=== PATIENT | male | born 1930 | race Caucasian/White ===

== ENCOUNTER 2016-05-21 14:42 | Inpatient (IN) | payer MEDICARE, BC ==
[~2016-05-21] VITALS: Ht 27.9 cm; Wt 58.3 kg
--- NOTE | ~2016-05-21 | DS ---
PATIENT'S NAME: SANTOS HURD [facility] AGE: 86 Y [address] ROOM: [facility] [place] [address] LOCATION: GPCU ADMIT DATE: 05/21/2016 Discharge Summary DISCHARGE DATE: FAMILY PHYSICIAN: Sage Long MD ATTENDING PHYSICIAN: Mariza Sanders PRINCIPAL DIAGNOSES: 1. Trauma leading to multiple rib fractures, status post hemothorax, status post chest tube and removal. 2. Severe aortic stenosis with a valve area of 0.52 on the latest echo. 3. Insulin-dependant diabetes with multiple complications. 4. Severe gastroparesis. 5. Aspiration pneumonia. 6. High aspiration on all consistencies of food. 7. Advanced dementia. 8. Coronary artery disease, status post drug-eluting stent in 2016. 9. Peripheral vascular disease. The patient with the above-mentioned multiple advanced comorbid conditions, experienced a fall at home and presented to [facility] with a left-sided chest pain. X-ray showed multiple rib fractures as well as hemo as well as pneumothorax. General Surgery was consulted and a left-sided chest tube was placed. Other skeletal survey was also done with the CAT scan on admission to the hospital not revealing any significant fracture or abnormality. The patient had a long protracted hospital course experiencing multiple complications. He developed aspiration pneumonia in this hospitalization and he was treated for that with the Zosyn. Speech therapy as well as modified barium swallow was done to evaluate the patient's aspiration, and he continued to aspirate on multiple consistencies of food. confirmed that he had signs and symptoms of the aspiration from home as well. He received nasogastric tube feeds for over a week. The idea of gastrostomy tube was brought in, but declined to pursue this at this point. He also had severe aortic stenosis with the last valve area known as 0.52, which was diagnosed in February of 2016. does not want to pursue any invasive procedure including valvuloplasty or valve replacement or transaortic valve replacement at this point. The patient's blood glucose level had been uncontrolled in the hospital. We tried to adjust the medications. Given his other multiple comorbidities including severe protein-calorie malnutrition, high risk of aspiration, and severe gastroparesis, decided to adopt comfort / hospice measures at this time and he was discharged to a SNF. PATIENT'S NAME: SANTOS HURD [facility] AGE: 86 Y [address] ROOM: G68 [place] [address] LOCATION: GPCU ADMIT DATE: 05/21/2016 Discharge Summary DISCHARGE DATE: FAMILY PHYSICIAN: Sage Long MD ATTENDING PHYSICIAN: Mariza Sanders Of note, the patient also has severe peripheral vascular disease as well as coronary artery disease, status post fem-popliteal graft as well as drug-eluting stent which was done in 2015. Both his dual antiplatelets were held during the course of the hospitalization, but were restarted on discharge to the swing bed, [facility]. The patient will undergo occupational therapy as well as physical and speech therapy over there. DISCHARGE MEDICATIONS: Include, 1. Amitriptyline 75 mg p.o. every night at bedtime. 2. Amlodipine 5 mg p.o. every night at bedtime. 3. Aspirin 81 mg p.o. every day. 4. Plavix 75 mg p.o. every day. 5. Atorvastatin 40 mg p.o. every night at bedtime. 6. Fentanyl 75 mcg transdermally every 72 hours. 7. Insulin aspart subcu 4 times daily per sliding scale. 8. Insulin Lantus 15 to 20 units subcu every night at bedtime. 9. Reglan 5 mg p.o. t.i.d. 10. Mirtazapine 7.5 mg p.o. every night at bedtime. 11. Pantoprazole 40 mg p.o. daily. 12. MiraLAX 17 g p.o. twice daily p.r.n. 13. Sennosides 8.6 mg p.o. every day. 14. Prednisone 5 mg p.o. every day, stopped in this hospitalization. 15. DuoNeb 1 inhalation 4 times daily. 16. Melatonin 9 mg p.o. at bedtime as needed p.r.n. 17. Zofran 4 mg IV q.6 hours p.r.n. for nausea. 18. Hydrocortisone 4 drops otic 4 times daily. 19. Zolpidem 5 mg p.o. every night at bedtime. 20. Docusate 100 mg p.o. every morning. New medications include, 1. Symbicort 160/4.5 mcg b.i.d. inhalation. 2. Spiriva 18 mcg capsule inhalation once daily. FOLLOWUP: The patient would follow up with Dr. oLng in 1 week. The patient was hemodynamically stable at the discharge. Prognosis is guarded due to his multiple advanced comorbid conditions. I spent 40 minutes in discharge planning, care, and discussion with the family of this patient. PATIENT'S NAME: SANTOS HURD [facility] AGE: 86 Y [address] ROOM: [place] [address] [facility] ADMIT DATE: 05/21/2016 Discharge Summary DISCHARGE DATE: FAMILY PHYSICIAN: Sage Long MD ATTENDING PHYSICIAN: Mariza Sanders YANDEL HUBBARD MD TILA/modl /[id number] d: 06/05/16 0840 t: 06/08/16 1505, DISCHARGE SUMMARY
--- NOTE | ~2016-05-21 | ER ---
PATIENT'S NAME: SANTOS HURD [facility] AGE: 86 Y [address] ROOM: [place] [address] LOCATION: GPCU ADMIT DATE: 05/21/2016 ER/Outpatient Report DISCHARGE DATE: FAMILY PHYSICIAN: ORLANDO LONG MD ATTENDING PHYSICIAN: Marilyn MARIE TIME OF ARRIVAL: 1441 hours. TIME OF EVALUATION: 1442 hours. CHIEF COMPLAINT: Fall. HISTORY OF PRESENT ILLNESS: The patient is an 86-year-old male who presents to emergency department today with a chief complaint of fall. He reports it occurred at 9:30 this morning. He reports that he hit a chair on his left-side. He is having left-sided chest pain now. The pain is currently 10/10 in severity. He also has a back pain. He reports he has a chronic balance issues. He presented to Dr. Long clinic and was seen and evaluated underwent x-ray and was found to have rib fractures and pneumothorax and was sent over here for further evaluation. PAST MEDICAL HISTORY: Peripheral artery disease, ogs-dndhvkv-volvzgrcb diabetes, hypertension, aortic stenosis, BPH, falls, osteoporosis, and chronic back pain. PAST SURGICAL HISTORY: Lumbar spine. SOCIAL HISTORY: The patient denies any tobacco, alcohol, or illicit drug use. ALLERGIES: NO KNOWN DRUG ALLERGIES. MEDICATIONS: Please see list. REVIEW OF SYSTEMS: All systems are reviewed by myself are negative with the exception of those discussed in HPI and past medical history. PHYSICAL EXAMINATION: PATIENT'S NAME: SANTOS UHRD [facility] AGE: 86 Y [address] ROOM: [place] [address] LOCATION: GPCU ADMIT DATE: 05/21/2016 ER/Outpatient Report DISCHARGE DATE: FAMILY PHYSICIAN: ORLANDO LONG MD ATTENDING PHYSICIAN: Marilyn MARIE VITAL SIGNS: Weight 57.0 kg, blood pressure 163/77, pulse 78, respiratory rate 20, temperature 96.3, and oxygen saturation 95% on room air. GENERAL: The patient is an 86-year-old male who appears stated age in czzbyhfr-hp-yaypak acute discomfort, secondary to pain in his left chest. HEENT: Normocephalic, atraumatic. Pupils are equal, round, and reactive to light and accommodation. Extraocular motions are intact. Nares are patent bilaterally. TMs are clear. Oropharynx is clear. NECK: Supple. There is no nuchal rigidity. No midline tenderness to palpation. No step-offs or deformities. CARDIOVASCULAR: Regular rate and rhythm. LUNGS: Diminished on the left. ABDOMEN: Soft. There is left upper quadrant tenderness to palpation. There is no rebound, rigidity, or guarding. Positive bowel sounds. MUSCULOSKELETAL: The patient moves all 4 extremities. A 2/4 pulses of all 4 extremities. The patient does have crepitance noted to the left anterior chest wall and lateral chest wall. He has perfusion in all 4 extremities. LABS AND X-RAYS: Labs and x-rays are obtained. Previous x-rays are reviewed by myself. It does show evidence of a rib fracture of the left and the pneumothorax. CT scan is obtained. I have discussed results with the radiologist. It does show left hemithorax with rib fractures and pneumothorax, subcutaneous emphysema, and layering pleural fluid suspecting hemothorax in the left pleural space. There are emphysematous changes. There is constipation. CT scan of the lumbar spine shows no acute process. One-view chest x-ray post- chest tube resolution of the left pneumothorax. CT scan of the thoracic spine shows no acute fracture. CT scan of the cervical spine shows no acute fracture. CT scan the brain shows no acute process. Cardiac enzymes are unremarkable. CMP is unremarkable. LFTs are normal. CBC is remarkable for white blood cell count of 18.7 otherwise normal. IMPRESSION: 1. Acute left pneumothorax with hemothorax. 2. Multiple rib fractures 4 through 8. 3. Status post ground-level fall. 4. Chronic back pain. 5. Balance and instability. 6. Initial visit. EMERGENCY DEPARTMENT COURSE: The patient was brought back to the examination room. Seen and evaluated by myself. IV is established. Laboratory analysis and imaging are obtained as described above. Results of CT of the chest are obtained. I have discussed the case with Dr. Thomas with General Surgery and Trauma Surgery. Dr. Thomas has seen and evaluated the patient down here in the emergency PATIENT'S NAME: SANTOS HURD [facility] AGE: 86 Y [address] ROOM: [address] [address] [facility] AD[facility] DATE: 05/21/2016 ER/Outpatient Report DISCHARGE DATE: FAMILY PHYSICIAN: ORLANDO LONG MD ATTENDING PHYSICIAN: Marilyn MARIE department. He has placed a chest tube. Please see his dictation. I have discussed the case with Dr. Gabriel with the Family Practice resident at 1724 hours he will see and evaluate the patient and the staff with the Hospitalist Service. Please see his dictation as well. DISPOSITION: The patient is admitted under the care of the Hospitalist Service in conjunction with Dr. Gabriel resident for PA. DO CASS NEUMANN/modl /[id number] d: t: 05/22/16 0757, OUTPATIENT REPORT
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
--- NOTE | ~2016-05-21 | DS ---
PATIENT'S NAME: SANTOS HURD [facility] AGE: 86 Y [address] ROOM: [facility] [place] [address] LOCATION: GPCU ADMIT DATE: 05/21/2016 Discharge Summary DISCHARGE DATE: 06/07/2016 FAMILY PHYSICIAN: Sage Long MD ATTENDING PHYSICIAN: Mariza Sanders ADDENDUM: Further discussion with the family regarding the patient's prognosis and current condition, , Kaye, decided to make the patient comfortable and pursue comfort care measures rather than any treatment at this point. He will be discharged to [facility] today on comfort measures. DISCHARGE MEDICATIONS: Include: 1. Amitriptyline 75 mg p.o. every night at bedtime. 2. Amlodipine 5 mg p.o. every day. 3. Aspirin 81 mg p.o. every day. 4. Fentanyl 75 mg every 72 hours transdermal patch. 5. Insulin detemir 10 units subcu every night at bedtime. 6. Metoclopramide 5 mg p.o. t.i.d. 7. Mirtazapine 7.5 mg p.o. every night at bedtime. 8. Pantoprazole 40 mg p.o. daily. 9. MiraLAX 17 g p.o. twice daily p.r.n. 10. Senokot 8.6 mg p.o. p.r.n. 11. Tylenol 1000 mg every 8 hours p.r.n. 12. Atropine 1% ophthalmic drops 1-2 drops every 4 hours p.r.n. 13. Bisacodyl 10 mg rectal suppository p.r.n. 14. Docusate 100 mg p.o. b.i.d. 15. Haloperidol 1 mg every 1 hour as needed. 16. Hyoscyamine 125 mcg SL every 4 hours as needed. 17. Lorazepam 0.5 mg p.o. sublingual every 2 hours as needed. 18. Morphine sulfate 1-2 mg IV as needed p.r.n. 19. sublingual every hour p.r.n. 20. Prochlorperazine 25 mg rectal suppository every 12 hours as needed for pain. 21. Zolpidem 5 mg p.o. every night at bedtime for insomnia. CONDITION ON DISCHARGE: Guarded. PROGNOSIS: Poor. I spent 35 minutes in discharge planning, coordination, and discussion with the family. PATIENT'S NAME: SANTOS HURD [facility] AGE: 86 Y [address] ROOM: [id number] [place] [address] LOCATION: [facility] ADMIT DATE: 05/21/2016 Discharge Summary DISCHARGE DATE: 06/07/2016 FAMILY PHYSICIAN: Sage Long MD ATTENDING PHYSICIAN: Mariza Sanders MD TILA MONREAL/rui /[id number] d: 06/08/16 0247 t: 06/08/16 1508, DISCHARGE SUMMARY
--- NOTE | ~2016-05-21 | OR ---
PATIENT'S NAME: SANTOS HURD [facility] AGE: 86 Y [address] ROOM: [place] [address] LOCATION: GPCU ADMIT DATE: 05/21/2016 OR/Procedure Report DISCHARGE DATE: FAMILY PHYSICIAN: ORLANDO LONG MD ATTENDING PHYSICIAN: Marilyn MARIE SURGEON: Rishi Thomas MD FLAGSETTER: DATE OF PROCEDURE: 05/21/2016 REFERRING PHYSICIAN: Orlando Sánchez DO. PREOPERATIVE DIAGNOSES: 1. Fall. 2. Left rib fractures, number 4 through 8. 3. Large left pneumothorax. 4. History of Plavix utilization. POSTOPERATIVE DIAGNOSES: 1. Fall. 2. Left rib fractures, number 4 through 8. 3. Large left pneumothorax. 4. History of Plavix utilization. PROCEDURE: Insertion of a left 32-Belizean thoracostomy tube. ANESTHESIA: 30 mL of 1% Xylocaine. SPECIMEN: None. INDICATION: The patient is an 86-year-old gentleman who fell at home and a history of "drop attacks." He went to Dr. Long' office because of increasing chest pain and shortness of breath. A chest x-ray showed a large pneumothorax, who was sent down to the emergency room where they did a partial trauma evaluation. The patient had a CT scan; other than the pneumothorax, it was unremarkable for any acute changes. I was consulted for management. DESCRIPTION OF PROCEDURE: After informed consent and explanation of the procedure and increased risk of bleeding due to Plavix utilization in the emergency room, the family and the patient agreed to left thoracostomy tube placement for decompression of the pneumothorax. PROCEDURE: After informed consent in the ER suite, his left lateral chest was prepped and draped into a sterile field. On the anterior axillary line, I injected local anesthetic, and over 5th intercostal space, I injected local anesthetic. Using a 10 blade to make 1-inch incision, split the intercostal PATIENT'S NAME: SANTOS HURD [facility] AGE: 86 Y [address] ROOM: [place] [address] LOCATION: GPCU ADMIT DATE: 05/21/2016 OR/Procedure Report DISCHARGE DATE: FAMILY PHYSICIAN: ORLANDO LONG MD ATTENDING PHYSICIAN: Marilyn MARIE muscles and poked into the pleural cavity with release of a large amount of pneumothorax. We slid the 32-Belizean thoracostomy tube in to 10 cm. We secured it in place with 3-0 Prolene. Sterile dressing was applied. Followup chest x-ray showed good chest tube placement. A sliver of lateral peripheral pneumothorax remaining. No evidence of tension. MD GERARD KUMAR/modl /[id number] d: 05/21/16 2334 t: 06/04/16 0849, OPERATIVE SUMMARY
--- NOTE | ~2016-05-21 | HP ---
PATIENT'S NAME: SANTOS HURD [facility] AGE: 86 Y [address] ROOM: [id number] [place], [place] [address] LOCATION: GPCU ADMIT DATE: 05/21/2016 History & Physical DISCHARGE DATE: FAMILY PHYSICIAN: ORLANDO LONG MD ATTENDING PHYSICIAN: Marilyn MARIE DATE OF SERVICE: CHIEF COMPLAINT: Multiple rib fractures, left-sided pneumothorax. HISTORY OF PRESENT ILLNESS: This is a pleasant 86-year-old male who presented to the emergency department after an unwitnessed fall at home, that resulted in left sided pneumothorax. The patient states that he woke up this morning around 9 to 9:30 and was ambulating from his bedroom to his living room and once he got to his living room his feet felt "wobbly" and he fell to the ground. He states that he landed on his ribs on the left-side of his chest. He denies any head trauma or any loss of consciousness at all. He states then he was further evaluated by his primary care provider, Dr. Long, over at [facility]. At that time, a chest x-ray showed a left-sided pneumothorax. Dr. Long then sent him on over to [facility] Emergency Department for further evaluation. Once he got to the emergency department, a CT of his head, chest, and abdomen showed a left-sided pneumothorax as well as hemothorax and multiple rib fractures 4 through 8. General Surgery and Dr. Thomas was consulted. Dr. Thomas came in and placed the left-sided chest tube. Abdomen CT also showed constipation. See the CT scans for further reports. Dr. Thomas then did write for pain medications with morphine and to be admitted to the [facility]. Upon discussion further with the patient, the patient states that he does have a history of orthostatic hypotension. He states though that usually when he stands up, he will get little wobbly on his feet, and has to hold on to things before he starts walking; however, this event was different in the fact that he was ambulating through his living room when he felt weak and his legs give out. The patient is also a type 2 diabetic and is currently controlled on insulin. The patient does have a history of hypoglycemic episodes, but the patient states that his fasting glucose this morning was 98. The patient is unsure when his last hemoglobin A1c is. Again, the patient denies any loss of consciousness, the patient denies any tunnel vision or any blackout vision. During this event, the patient just states that his legs got weak. The patient denies tripping on anything. The patient currently lives with his here in [place], [place]. The patient denies any recent fevers, chills, or infections. The patient complains of severe left-sided chest pain, secondary to the fall/trauma and multiple rib fractures as well as a chest tube placement. The patient denies any recent infections or feeling fatigued at all. PATIENT'S NAME: SANTOS HURD [facility] AGE: 86 Y [address] ROOM: [facility] [place] [place], [place] [address] LOCATION: GPCU ADMIT DATE: 05/21/2016 History & Physical DISCHARGE DATE: FAMILY PHYSICIAN: ORLANDO LONG MD ATTENDING PHYSICIAN: Marilyn MARIE REVIEW OF SYSTEMS: An 11-point review of systems was negative other than what was noted up above in the HPI. PAST MEDICAL HISTORY: Type 2 diabetes, insulin-controlled, CAD, status post drug-eluting stent in July of 2015, peripheral vascular disease, orthostatic hypotension, hyperlipidemia, history of constipation, and diabetic neuropathy. MEDICATIONS: Home medications are as follows: 1. Aspirin 81 mg. 2. Amitriptyline 75 mg daily. 3. Fentanyl 75 mcg patch every 3rd day. 4. Clopidogrel 75 mg daily. 5. Atorvastatin 40 mg daily. 6. Amlodipine 5 mg daily. 7. Zolpidem 5 mg nightly. 8. Melatonin 3 mg nightly. 9. Docusate sodium 100 mg daily. 10. Sennosides 8.6 mg daily. 11. Insulin aspart with NovoLog sliding scale as needed with meal times. 12. Insulin glargine 15-20 units subcu nightly at bedtime. 13. Hydrocortisone polymyxin neomycin 10 mL optic drop. ALLERGIES: TEGRETOL. PHYSICAL EXAMINATION: VITAL SIGNS: Temp 97.7, respirations 18, pulse 78, blood pressure 199/85, and 99% on room air. GENERAL: He is alert and oriented x3, appears stated age. SKIN: Multiple areas of ecchymoses and bruising noted over his lower arms bilaterally. HEENT: Head: Normocephalic, atraumatic. Eyes: Extraocular movements intact. Pupils equal, round, and reactive to light and accommodation. No scleral icterus or conjunctival hemorrhage noted. Oral mucosa is moist. No suspicious lesions noted. No JVD noted. NECK: Supple. No cervical lymphadenopathy appreciated. NOSE: Nasal mucosa within normal limits. No discharge noted on examination. RESPIRATIONS: Unlabored breath sounds. Fine crackles noted in the left-side of the lung base as well as decreased breath movements on the left-side of his lung base. Right side of his lungs are clear to auscultation. CARDIAC: A 2/6 systolic ejection murmur heard best at the right upper sternal PATIENT'S NAME: SANTOS HURD [facility] AGE: 86 Y [address] ROOM: [id number] [place], [place] [address] LOCATION: [facility] ADMIT DATE: 05/21/2016 History & Physical DISCHARGE DATE: FAMILY PHYSICIAN: ORLANDO LONG MD ATTENDING PHYSICIAN: Marilyn MARIE. Normal S1, S2. CHEST: Left-sided chest tube placement in place and bandage dressing attached over it. ABDOMEN: Soft, thin, nontender, normal bowel sounds. MUSCULOSKELETAL: Strength is bilateral and equal and within normal limits in the upper extremities as well as lower extremities. PSYCHIATRIC: He is oriented to time, person, and place. Answers all questions appropriately. EXTREMITIES: No lower extremity edema noted. No cyanosis or clubbing present. LABORATORY DATA: CBC: He had a white blood cell count of 18.7, hemoglobin 14.8, hematocrit 46.6, and platelets 239. Troponin less than 0.04. CK-MB elevated at 4.1, CK 122, BNP 144. Potassium 4.5, chloride 106, BUN 17, creatinine 1, glucose 169, calcium 9.7, CO2 24, AST 21, ALT 19, alk phos 60, total bili 0.7, albumin 3.6, and total protein 7.1. Accu-Chek before dinner was 124. Chest x-ray status post left chest tube placement shows resolution of left pneumothorax. CT of the head showed no acute hemorrhage or midline shift. Generalized atrophy changes. No skull fractures identified. Pertinent findings on the CT of the thorax showed left hemithorax with multiple rib fractures and a left pneumothorax. Emphysematous changes in the lung parenchyma noted as well as vascular calcifications. See further report for further details. ASSESSMENT AND PLAN: This is an 86-year-old male who presented to [facility] Emergency Department after an unwitnessed fall at home resulting in multiple rib fractures as well as a left-sided pneumothorax and hemothorax, status post chest tube. 1. Fall, multiple rib fractures, left pneumothorax, left hemothorax, status post chest tube placement on 05/21/[address] Thomas has came and evaluated the patient. Dr. Thomas currently will manage his pain control. Dr. Thomas also placed the patient on a liquid diet, which we will continue that at this present time. 2. Coronary artery disease, status post circumflex artery stenting with a drug-eluting stent in July of 2015. Last echo showed an ejection fraction of 60% to 65% last July of 2015 with fbxbwdvq-th-zmacde aortic stenosis. The patient already received his aspirin and Plavix this morning. We will hold his aspirin and Plavix tomorrow and consult Cardiology Dr. Gallegos who is his special delivery clerk and he placed a stent back in July. We want further evaluations and recommendations from her on if we should continue his Plavix and aspirin while he is here in the hospital or if we should hold off until he is discharged to home. 3. Peripheral vascular disease. 4. Hyperlipidemia. We will continue with his home statin use. PATIENT'S NAME: SANTOS HURD [facility] AGE: 86 Y [address] ROOM: [place] [address] LOCATION: GPCU ADMIT DATE: 05/21/2016 History & Physical DISCHARGE DATE: FAMILY PHYSICIAN: ORLANDO LONG MD ATTENDING PHYSICIAN: Marilyn MARIE 5. Type 2 diabetes, insulin-controlled, we will obtain hemoglobin A1c at this present time. Given the fact that the patient has had multiple hypoglycemic events in the past as well as fasting blood glucose is below 100, we will decrease his current nightly regimen of Lantus 15 to 20, and we will decrease it down by 5 units to 10 with his bedtime and evening dose. We will continue Accu-Cheks every meals as well as before bed. We want to keep a close eye on his blood sugars especially if the patient will stay on a liquid diet as he may need further decrease in his Levemir dosage. Also, his goal hemoglobin A1c at his present age is less than 8% and given the fact that the patient is unsteady on his feet, secondary to diabetic neuropathy, orthostatic hypotension, and hypoglycemia, it would be in the best interest of the patient if his fasting blood glucoses in the morning run a little bit higher. 6. Orthostatic hypotension. The patient's current blood pressures are in the 160s-190s, likely secondary related to pain; however, we will continue his amlodipine at this current time since the blood pressure is still elevated. The patient is also on morphine DEPARTMENT CLINICIAN for pain control, which should help with his blood pressures. 7. Diabetic neuropathy. We will continue on his home amitriptyline. 8. Leukocytosis. He showed a white blood cell count of 18.7, likely secondary to a traumatic fall as well as his multiple rib fractures. We will repeat a CBC and BMP in the morning for further evaluation if the patient denies any fevers or chills and denies any recent infections. The patient also does not have any pneumonia on the chest x-ray or the chest CT. If leukocytosis is still noted in the morning, we will do further workup for infectious etiology as a possible cause of the fall. 9. Constipation. The patient deals with constipation on and off while living at home. We will want to avoid any enema, secondary to his current pain situation. We will start him on milk of mag as well as scheduled senna to help relieve his constipation. The patient was also placed on a liquid diet, which should hopefully help out with his constipation. 10. Code status is DNR. AMARA SMALL MD RESIDENT FOR MD MEAGHAN CUADRA/rui /[id number] D: [id number] T: 033 HISTORY & PHYSICAL
--- NOTE | ~2016-05-21 | CON ---
PATIENT'S NAME: SANTOS HURD [facility] AGE: 86 Y [address] ROOM: [address] [place] [id number] [facility] ADMIT DATE: 05/21/2016 Consultation DISCHARGE DATE: FAMILY PHYSICIAN: ORLANDO ARREAGA MD ATTENDING PHYSICIAN: Marilyn MARIE DATE OF CONSULTATION: 05/25/2016 REFERRING PHYSICIAN: Mandy Herr MD LOCATION: [facility], [facility]. REASON FOR CONSULTATION: This is a Palliative Care referral for the patient and family support and goals of care. HISTORY OF PRESENT ILLNESS: This 86-year-old male was admitted on 05/21/2016 after having an unwitnessed fall at home and falling on his left-side. He had woke up about 9:30 and was going to the bathroom and went into the living room and when he got to the living room he got wobbly and fell. He has a history of orthostatic hypertension. He landed on his left-side of his chest. A chest x-ray showed a left-sided pneumothorax and he had a CT of the head, chest, and abdomen showing a left-sided pneumothorax, multiple rib fractures, [address] Thomas came in and placed a left-sided chest tube. Abdomen of the CT showed constipation. The patient has a known history of type 2 diabetes, had currently been controlled, and glycosylated hemoglobins were normal. The patient denies any loss of consciousness before fall and states legs just got weak. Currently, complains of pain, hurts all over, unable to rate, states a lot, and has periods of some confusion, does seem to recognize and more awake than yesterday. No nausea or vomiting. No shortness of breath. Alert and oriented. Just drowsy. Last bowel movement unknown. PAST MEDICAL HISTORY: Type 2 diabetes, insulin-controlled, CAD, status post drug-eluting stent in July of 2015, peripheral vascular disease, orthostatic hypertension, hyperlipidemia, history of constipation, diabetic neuropathy, peripheral neuropathy, bilateral feet, ceje-rt-eybgrnq, and gastroparesis. ALLERGIES: TEGRETOL. FAMILY HISTORY: Mother had breast cancer, father had stroke, heart disease, hypertension, and brother had Parkinson's. PATIENT'S NAME: SANTOS HURD [facility] AGE: 86 Y [address] ROOM: [id number] [place], [place] [address] [facility] ADMIT DATE: 05/21/2016 Consultation DISCHARGE DATE: FAMILY PHYSICIAN: ORLANDO ARREAGA MD ATTENDING PHYSICIAN: Marilyn MARIE PAST SURGICAL HISTORY: Lumbar fusion, aortic fem bypass, heart cath 6 years ago, bilateral cataracts, and TURP. SOCIAL HISTORY: Lives at home with his . He is retired. Smoker 1 pack per day for 35 years and quit in 1988. No alcohol use. REVIEW OF SYSTEMS: A 12-point review of systems is done and is negative except as mentioned in the HPI. PHYSICAL EXAMINATION: VITAL SIGNS: Temp 98.1, pulse 87, respirations 18, blood pressure 147/67, and O2 sats 94%. He is on oxygen 8 L off BiPAP. He is 5 feet, 11 inches, weighs 125 pounds with a BMI of 17.5. No previous weights on chart. GENERAL: Alert and oriented, in no acute distress. SKIN: Warm and dry. Color pale. HEENT: Head: Normocephalic and atraumatic. Sclerae nonicteric. Conjunctivae pale and pink. Mouth is pink and moist without exudate. LYMPHS: No cervical adenopathy or thyromegaly. RESPIRATORY: Coarse on left and diminished on right. Chest tube in place on left-side draining sanguinous fluid. CARDIAC: A 2/6 systolic ejection murmur heard best in right upper sternal border. ABDOMEN: Soft, thin, nontender. Normal bowel tone. MUSCULOSKELETAL: Decreased strength bilaterally in extremities. PSYCH: Oriented to time, place, and person. Answers questions appropriately. EXTREMITIES: No cyanosis or clubbing. Palliative performance scale is 40%, mainly in bed or chair, unable to do most activity, total care, reduced intake, is on a tube feeding. Conscious level is full, but some periods of confusion and drowsiness. IMPRESSION: Left chest pain, fractured ribs, delirium history, weakness and fatigue, malnutrition, and debility. PLAN: 1. Met with and the patient and the patient's cousin. Discussed the patient's overall condition. They have a very good understanding of the condition, recent fall, fractured ribs, chest tube, orthostatic hypertension, and objccpcn-iq-hsgocj aortic stenosis, had been getting along okay at home, but lost over 60 pounds over the past 3 years and is PATIENT'S NAME: SANTOS HURD [facility] AGE: 86 Y [address] ROOM: [id number] [place], [place] [address] LOCATION: GPCU ADMIT DATE: 05/21/2016 Consultation DISCHARGE DATE: FAMILY PHYSICIAN: ORLANDO ARREAGA MD ATTENDING PHYSICIAN: Marilyn MARIE continuing to decline from the gastroparesis. The patient had been able to walk with assistance, no cane or walker, just would get dizzy at times when he would rise, had always been able to just stand up slowly and be able to take his time and that would pass, but overall had been declining per . 2. Code status and advance directive. A copy of living will is on the chart. Code status is a do not resuscitate. The patient has no medical [id number]-pbagausp. Discussion on advance directives where to get an advanced directive in [facility]. Discussions on POLST form (Physician's Order for Life-Sustaining Treatment) form. will try to discuss later when patient is more alert and possibly get one filled out before going home. GOALS OF CARE: 1. Continuing aggressive treatments. 2. DNR code status. 3. Control pain. 4. Do POLST form before going home. 5. Look at care home in case the patient needs to go for rehab prefers [facility] at this time. 6. Go to [facility] and get a medical [id number] started. RECOMMENDATIONS: 1. Pain:. a. The patient currently was drowsy and medications were adjusted to a hydromorphone BUSINESS INTEGRATION ANALYST with 0.2 bolus dose, had 14 attempts with 11 delivered, had been managing pain. b. Fentanyl 75 mcg patch. 2. Weakness and fatigue. The patient has a lot of pain, is unable to do activity, does get up in chair. 3. Delirium. The patient had been confused and lethargic and is improved with decrease in the opioids. at bedside and nonpharmacological treatments. 4. Constipation. May need to have a suppository given for constipation noted on CT scan. We will continue to support the patient and family. Total time was 65 minutes with 55 minutes for counseling and coordination of care. Thank you for allowing me to assist this patient and family. PANCHO HERNANDEZ NP FOR JACQUELIN RASHID MD PATIENT'S NAME: SANTOS HURD [facility] AGE: 86 Y [address] ROOM: [place] [address] LOCATION: [facility] ADMIT DATE: 05/21/2016 Consultation DISCHARGE DATE: FAMILY PHYSICIAN: ORLANDO ARREAGA MD ATTENDING PHYSICIAN: Marilyn MARIE /[id number] d: 05/29/16 0027 t: 06/11/16 1352, CONSULTATION REPORT
[~2016-05-21 14:42] MED LIST: ASPIRIN EC81 MG PO; DURAGESIC 75MC75 MCG TOP; ELAVIL75 MG PO; LANTUS (IN100 UNIT/M SUB-Q; LIPITOR40 MG PO; LOPRESSOR25 MG PO; NORVASC5 MG PO; NOVOLOG100 UNIT/M SUB-Q; PLAVIX75 MG PO; SENOKOT8.6 MG PO; ZOCOR40 MG PO
[2016-05-21 15:01] LABS: BASOPHIL # 0.1 K/uL (0.0-0.2); BASOPHIL % 0.4 %; EOSINOPHIL # 0.1 K/uL (0.0-0.5); EOSINOPHIL % 0.5 %; HEMATOCRIT 46.6 % (33.0-50.0); HEMOGLOBIN 14.8 g/dL (11.0-16.0); IMMATURE GRANULOCYTE # 0.1 K/uL (0.0-0.3); IMMATURE GRANULOCYTE % 0.5 %; LYMPHOCYTE # 1.6 K/uL (0.8-4.0); LYMPHOCYTE % 8.3 %; MCH 31.4 pg (27.0-34.0); MCHC 31.8 gm/dL (32.0-36.5); MCV 98.9 fl (83.0-98.0); MONOCYTE % 5.3 %; MPV 8.7 fl (9.4-12.4); NEUTROPHIL # (ANC) 15.9 K/uL (1.4-9.0); NRBC % 0 /100WBC (0-0.00); PLATELET COUNT 239 K/uL (150-450); RBC 4.71 M/uL (3.50-5.50); RDW-CV 14.4 % (11.9-14.6)
[2016-05-21 15:02] LABS: WBC 18.7 K/uL (4.0-11.0)
[2016-05-21 15:09] LABS: INR - (THERAPEUTIC) 1.1 (0.9-1.1); PROTIME 11.1 SECONDS (9.6-11.1); PTT 25 SECONDS (25-32)
[2016-05-21 15:17] LABS: ALBUMIN 3.6 gm/dL (3.5-5.0); ALK PHOS 60 IU/L (33-138); ALT 19 IU/L (12-78); ANION GAP 18.5 (10.0-19.0); AST 21 IU/L (10-40); BLOOD UREA NITROGEN 17 mg/dL (6-24); CALCIUM 9.4 mg/dL (8.5-10.5); CHLORIDE 106 mMol/L (96-110); CO2 24 mMol/L (22-32); ESTIMATED GFR (MDRD EQUATION) > 60; POTASSIUM 4.5 mMol/L (3.7-5.1); SODIUM 144 mMol/L (135-145); TOTAL BILIRUBIN 0.7 mg/dL (0.0-1.5); TOTAL PROTEIN 7.1 g/dL (6.0-8.4)
[2016-05-21 15:21] LABS: CPK 122 IU/L (35-332)
[2016-05-21] MEDS ORDERED: CORTISPORIN OTI10 ML OTIC (20:42)
[2016-05-21] MEDS ORDERED: AMBIEN5 MG PO (20:43)
[2016-05-21] MEDS ORDERED: MELATIN3 MG PO (20:44)
[2016-05-21] MEDS ORDERED: STOOL SOFTENER100 MG PO (20:45)
[2016-05-22 05:45] LABS: HEMATOCRIT 43.8 % (33.0-50.0); MCV 100.2 fl (83.0-98.0); MPV 8.7 fl (9.4-12.4); PLATELET COUNT 209 K/uL (150-450); RBC 4.37 M/uL (3.50-5.50); RDW-CV 14.3 % (11.9-14.6); WBC 7.4 K/uL (4.0-11.0)
[2016-05-22 06:00] LABS: ANION GAP 13.9 (10.0-19.0); CALCIUM 8.8 mg/dL (8.5-10.5); CREATININE 1.2 mg/dL (0.6-1.3); POTASSIUM 4.9 mMol/L (3.7-5.1)
[2016-05-22 06:18] LABS: ABSOLUTE NEUTROPHIL CT (ANC) 6.1 K/uL (1.4-9.0); BANDED NEUTROPHIL # 3.4 K/uL (0.0-0.1); BANDED NEUTROPHILS % 46 %; LYMPHOCYTE # 0.8 K/uL (0.8-4.0); LYMPHOCYTE % 11 %; MONOCYTE # 0.3 K/uL (0.0-1.0); SEGMENTED NEUTROPHIL # 2.7 K/uL (1.4-9.0); SEGMENTED NEUTROPHIL % 37 %
[2016-05-22 12:03] LABS: HEMATOCRIT 42.1 % (33.0-50.0); HEMOGLOBIN 13.2 g/dL (11.0-16.0)
[2016-05-22 19:45] LABS: BICARBONATE 25.6 mmol/L (18.0-23.0); PCO2 64 mmHg (35-45); PO2 60 mmHg (80-90)
[2016-05-23 03:44] LABS: HEMATOCRIT 43.8 % (33.0-50.0); HEMOGLOBIN 13.5 g/dL (11.0-16.0); MCH 31.5 pg (27.0-34.0); MCHC 30.8 gm/dL (32.0-36.5); MCV 102.1 fl (83.0-98.0); MPV 9.1 fl (9.4-12.4); RBC 4.29 M/uL (3.50-5.50); RDW-CV 14.1 % (11.9-14.6); WBC 10.3 K/uL (4.0-11.0)
[2016-05-23 04:01] LABS: PLATELET COUNT 166 K/uL (150-450)
[2016-05-23 04:13] LABS: ALBUMIN 2.8 gm/dL (3.5-5.0); ANION GAP 15.8 (10.0-19.0); CREATININE 1.3 mg/dL (0.6-1.3); MAGNESIUM 2.5 mg/dL (1.3-2.6); PHOSPHORUS 3.5 mg/dL (2.5-4.9); POTASSIUM 4.8 mMol/L (3.7-5.1)
[2016-05-23 04:56] LABS: ABSOLUTE NEUTROPHIL CT (ANC) 9.2 K/uL (1.4-9.0); BANDED NEUTROPHIL # 6.4 K/uL (0.0-0.1); BANDED NEUTROPHILS % 62 %; LYMPHOCYTE # 0.6 K/uL (0.8-4.0); LYMPHOCYTE % 6 %; MONOCYTE # 0.2 K/uL (0.0-1.0); SEGMENTED NEUTROPHIL # 2.8 K/uL (1.4-9.0); SEGMENTED NEUTROPHIL % 27 %
[2016-05-24 04:20] LABS: HEMATOCRIT 40.5 % (33.0-50.0); HEMOGLOBIN 12.9 g/dL (11.0-16.0)
[2016-05-24 04:38] LABS: ALBUMIN 2.3 gm/dL (3.5-5.0); ANION GAP 16.7 (10.0-19.0); BLOOD UREA NITROGEN 39 mg/dL (6-24); CALCIUM 8.4 mg/dL (8.5-10.5); CHLORIDE 104 mMol/L (96-110); CO2 22 mMol/L (22-32); ESTIMATED GFR (MDRD EQUATION) > 60; MAGNESIUM 2.6 mg/dL (1.3-2.6); PHOSPHORUS 2.3 mg/dL (2.5-4.9); POTASSIUM 4.7 mMol/L (3.7-5.1); SODIUM 138 mMol/L (135-145)
[2016-05-25 04:52] LABS: HEMATOCRIT 35.6 % (33.0-50.0); HEMOGLOBIN 11.6 g/dL (11.0-16.0); MCH 31.7 pg (27.0-34.0); MCHC 32.6 gm/dL (32.0-36.5); MCV 97.3 fl (83.0-98.0); MPV 9.2 fl (9.4-12.4); PLATELET COUNT 157 K/uL (150-450); RBC 3.66 M/uL (3.50-5.50); RDW-CV 14.1 % (11.9-14.6)
[2016-05-25 05:04] LABS: ALBUMIN 2.6 gm/dL (3.5-5.0); BLOOD UREA NITROGEN 38 mg/dL (6-24); CALCIUM 8.6 mg/dL (8.5-10.5); CHLORIDE 104 mMol/L (96-110); CO2 30 mMol/L (22-32); ESTIMATED GFR (MDRD EQUATION) > 60; MAGNESIUM 2.4 mg/dL (1.3-2.6); SODIUM 140 mMol/L (135-145)
[2016-05-25 05:07] LABS: PHOSPHORUS 1.8 mg/dL (2.5-4.9)
[2016-05-25 05:52] LABS: BANDED NEUTROPHIL # 5.1 K/uL (0.0-0.1); BANDED NEUTROPHILS % 51 %; LYMPHOCYTE # 0.4 K/uL (0.8-4.0); LYMPHOCYTE % 3 %; MONOCYTE # 0.4 K/uL (0.0-1.0); SEGMENTED NEUTROPHIL # 3.9 K/uL (1.4-9.0); SEGMENTED NEUTROPHIL % 39 %
[2016-05-26 05:11] LABS: ALBUMIN 2.2 gm/dL (3.5-5.0); ANION GAP 11.2 (10.0-19.0); BLOOD UREA NITROGEN 39 mg/dL (6-24); CALCIUM 8.8 mg/dL (8.5-10.5); CHLORIDE 108 mMol/L (96-110); CO2 27 mMol/L (22-32); CREATININE 0.8 mg/dL (0.6-1.3); ESTIMATED GFR (MDRD EQUATION) > 60; POTASSIUM 4.2 mMol/L (3.7-5.1); SODIUM 142 mMol/L (135-145)
[2016-05-26 05:12] LABS: MAGNESIUM 2.7 mg/dL (1.3-2.6)
[2016-05-27 07:10] LABS: ALBUMIN 2.1 gm/dL (3.5-5.0); ANION GAP 8.9 (10.0-19.0); BLOOD UREA NITROGEN 41 mg/dL (6-24); CALCIUM 8.1 mg/dL (8.5-10.5); CHLORIDE 109 mMol/L (96-110); CO2 31 mMol/L (22-32); CREATININE 0.8 mg/dL (0.6-1.3); ESTIMATED GFR (MDRD EQUATION) > 60; POTASSIUM 4.9 mMol/L (3.7-5.1); SODIUM 144 mMol/L (135-145)
[2016-05-27 07:11] LABS: PHOSPHORUS 1.9 mg/dL (2.5-4.9)
[2016-05-27 07:20] LABS: HEMATOCRIT 32.3 % (33.0-50.0); HEMOGLOBIN 10.5 g/dL (11.0-16.0); MCH 31.8 pg (27.0-34.0); MCHC 32.5 gm/dL (32.0-36.5); MCV 97.9 fl (83.0-98.0); MPV 9.3 fl (9.4-12.4); PLATELET COUNT 166 K/uL (150-450); RDW-CV 14.5 % (11.9-14.6); WBC 13.6 K/uL (4.0-11.0)
[2016-05-27 07:43] LABS: BANDED NEUTROPHIL # 1.9 K/uL (0.0-0.1); BANDED NEUTROPHILS % 14 %; LYMPHOCYTE # 0.5 K/uL (0.8-4.0); LYMPHOCYTE % 4 %; MONOCYTE # 1.1 K/uL (0.0-1.0); SEGMENTED NEUTROPHIL # 10.1 K/uL (1.4-9.0); SEGMENTED NEUTROPHIL % 74 %
[2016-05-27 13:11] LABS: BICARBONATE 32.6 mmol/L (18.0-23.0); PCO2 48 mmHg (35-45); PO2 63 mmHg (80-90)
[2016-05-28 06:11] LABS: HEMATOCRIT 37.1 % (33.0-50.0); MCH 31.7 pg (27.0-34.0); MCHC 32.3 gm/dL (32.0-36.5); MCV 97.9 fl (83.0-98.0); MPV 9.5 fl (9.4-12.4); PLATELET COUNT 178 K/uL (150-450); RBC 3.79 M/uL (3.50-5.50); RDW-CV 14.6 % (11.9-14.6)
[2016-05-28 06:12] LABS: WBC 17.1 K/uL (4.0-11.0)
[2016-05-28 06:33] LABS: ALBUMIN 2.3 gm/dL (3.5-5.0); ALK PHOS 81 IU/L (33-138); ALT 207 IU/L (12-78); ANION GAP 7.7 (10.0-19.0); AST 132 IU/L (10-40); BLOOD UREA NITROGEN 30 mg/dL (6-24); CALCIUM 8.4 mg/dL (8.5-10.5); CHLORIDE 106 mMol/L (96-110); CO2 36 mMol/L (22-32); CREATININE 0.8 mg/dL (0.6-1.3); ESTIMATED GFR (MDRD EQUATION) > 60; MAGNESIUM 2.7 mg/dL (1.3-2.6); POTASSIUM 4.7 mMol/L (3.7-5.1); SODIUM 145 mMol/L (135-145); TOTAL BILIRUBIN 0.8 mg/dL (0.0-1.5); TOTAL PROTEIN 6.2 g/dL (6.0-8.4)
[2016-05-28 06:40] LABS: ABSOLUTE NEUTROPHIL CT (ANC) 16.3 K/uL (1.4-9.0); BANDED NEUTROPHIL # 1.9 K/uL (0.0-0.1); BANDED NEUTROPHILS % 11 %; LYMPHOCYTE # 0.3 K/uL (0.8-4.0); LYMPHOCYTE % 2 %; MONOCYTE # 0.5 K/uL (0.0-1.0); SEGMENTED NEUTROPHIL # 14.4 K/uL (1.4-9.0); SEGMENTED NEUTROPHIL % 84 %
[2016-05-29 05:48] LABS: BASOPHIL % 0.1 %; HEMATOCRIT 37.7 % (33.0-50.0); HEMOGLOBIN 12.1 g/dL (11.0-16.0); IMMATURE GRANULOCYTE # 0.2 K/uL (0.0-0.3); IMMATURE GRANULOCYTE % 0.9 %; LYMPHOCYTE # 0.5 K/uL (0.8-4.0); LYMPHOCYTE % 2.4 %; MCH 31.2 pg (27.0-34.0); MCHC 32.1 gm/dL (32.0-36.5); MCV 97.2 fl (83.0-98.0); MONOCYTE # 0.5 K/uL (0.0-1.0); MONOCYTE % 2.5 %; MPV 9.5 fl (9.4-12.4); NEUTROPHIL # (ANC) 19.6 K/uL (1.4-9.0); NEUTROPHIL % 94.1 %; NRBC % 0 /100WBC (0-0.00); RBC 3.88 M/uL (3.50-5.50); RDW-CV 14.5 % (11.9-14.6)
[2016-05-29 05:50] LABS: PLATELET COUNT 233 K/uL (150-450); WBC 20.9 K/uL (4.0-11.0)
[2016-05-29 06:05] LABS: ALBUMIN 2.3 gm/dL (3.5-5.0); ALK PHOS 88 IU/L (33-138); ALT 161 IU/L (12-78); AST 87 IU/L (10-40); BLOOD UREA NITROGEN 26 mg/dL (6-24); CALCIUM 8.4 mg/dL (8.5-10.5); CHLORIDE 104 mMol/L (96-110); CREATININE 0.9 mg/dL (0.6-1.3); ESTIMATED GFR (MDRD EQUATION) > 60; PHOSPHORUS 3.1 mg/dL (2.5-4.9); POTASSIUM 5.5 mMol/L (3.7-5.1); SODIUM 144 mMol/L (135-145); TOTAL PROTEIN 6.1 g/dL (6.0-8.4)
[2016-05-29 06:08] LABS: ANION GAP 9.5 (10.0-19.0); CO2 36 mMol/L (22-32); MAGNESIUM 3.3 mg/dL (1.3-2.6)
[2016-05-30 05:22] LABS: HEMATOCRIT 37.4 % (33.0-50.0); MCH 31.6 pg (27.0-34.0); MCHC 32.1 gm/dL (32.0-36.5); MCV 98.4 fl (83.0-98.0); MPV 9.6 fl (9.4-12.4); PLATELET COUNT 233 K/uL (150-450); RDW-CV 14.6 % (11.9-14.6)
[2016-05-30 05:23] LABS: WBC 19.6 K/uL (4.0-11.0)
[2016-05-30 05:41] LABS: ALBUMIN 2.1 gm/dL (3.5-5.0); ALK PHOS 83 IU/L (33-138); ALT 121 IU/L (12-78); ANION GAP 10.4 (10.0-19.0); AST 52 IU/L (10-40); BLOOD UREA NITROGEN 32 mg/dL (6-24); CALCIUM 8.5 mg/dL (8.5-10.5); CHLORIDE 104 mMol/L (96-110); CO2 31 mMol/L (22-32); ESTIMATED GFR (MDRD EQUATION) > 60; POTASSIUM 5.4 mMol/L (3.7-5.1); SODIUM 140 mMol/L (135-145); TOTAL BILIRUBIN 0.8 mg/dL (0.0-1.5); TOTAL PROTEIN 5.8 g/dL (6.0-8.4)
[2016-05-30 05:48] LABS: BANDED NEUTROPHIL # 1.8 K/uL (0.0-0.1); BANDED NEUTROPHILS % 9 %; LYMPHOCYTE # 0.4 K/uL (0.8-4.0); LYMPHOCYTE % 2 %; MONOCYTE # 0.2 K/uL (0.0-1.0); SEGMENTED NEUTROPHIL # 17.3 K/uL (1.4-9.0); SEGMENTED NEUTROPHIL % 88 %
[2016-06-01 05:39] LABS: HEMATOCRIT 34.8 % (33.0-50.0); HEMOGLOBIN 11.2 g/dL (11.0-16.0); MCH 31.8 pg (27.0-34.0); MCHC 32.2 gm/dL (32.0-36.5); MCV 98.9 fl (83.0-98.0); MPV 9.9 fl (9.4-12.4); PLATELET COUNT 248 K/uL (150-450); RBC 3.52 M/uL (3.50-5.50); RDW-CV 14.6 % (11.9-14.6)
[2016-06-01 05:47] LABS: WBC 20.8 K/uL (4.0-11.0)
[2016-06-01 06:00] LABS: ALK PHOS 84 IU/L (33-138); ALT 66 IU/L (12-78); ANION GAP 12.5 (10.0-19.0); AST 25 IU/L (10-40); BLOOD UREA NITROGEN 33 mg/dL (6-24); CALCIUM 8.2 mg/dL (8.5-10.5); CHLORIDE 104 mMol/L (96-110); CO2 31 mMol/L (22-32); CREATININE 0.9 mg/dL (0.6-1.3); ESTIMATED GFR (MDRD EQUATION) > 60; MAGNESIUM 2.6 mg/dL (1.8-2.6); PHOSPHORUS 2.5 mg/dL (2.5-4.9); POTASSIUM 4.5 mMol/L (3.7-5.1); SODIUM 143 mMol/L (135-145); TOTAL PROTEIN 5.2 g/dL (6.0-8.4)
[2016-06-01 06:01] LABS: ALBUMIN 1.9 gm/dL (3.5-5.0); TOTAL BILIRUBIN 0.5 mg/dL (0.0-1.5)
[2016-06-01 06:24] LABS: ABSOLUTE NEUTROPHIL CT (ANC) 19.6 K/uL (1.4-9.0); BANDED NEUTROPHIL # 1.5 K/uL (0.0-0.1); BANDED NEUTROPHILS % 7 %; LYMPHOCYTE # 0.4 K/uL (0.8-4.0); LYMPHOCYTE % 2 %; MONOCYTE # 0.8 K/uL (0.0-1.0); SEGMENTED NEUTROPHIL # 18.1 K/uL (1.4-9.0); SEGMENTED NEUTROPHIL % 87 %
[2016-06-02 06:38] LABS: HEMATOCRIT 35.4 % (33.0-50.0); HEMOGLOBIN 11.6 g/dL (11.0-16.0); MCH 31.6 pg (27.0-34.0); MCHC 32.8 gm/dL (32.0-36.5); MCV 96.5 fl (83.0-98.0); MPV 9.1 fl (9.4-12.4); PLATELET COUNT 293 K/uL (150-450); RBC 3.67 M/uL (3.50-5.50); RDW-CV 14.5 % (11.9-14.6)
[2016-06-02 06:39] LABS: WBC 27.8 K/uL (4.0-11.0)
[2016-06-02 07:02] LABS: ABSOLUTE NEUTROPHIL CT (ANC) 25.9 K/uL (1.4-9.0); LYMPHOCYTE # 0.6 K/uL (0.8-4.0); LYMPHOCYTE % 2 %; MONOCYTE # 1.4 K/uL (0.0-1.0); SEGMENTED NEUTROPHIL # 25.9 K/uL (1.4-9.0); SEGMENTED NEUTROPHIL % 93 %
[2016-06-03 06:44] LABS: BASOPHIL % 0.1 %; EOSINOPHIL % 0.2 %; HEMATOCRIT 34.7 % (33.0-50.0); HEMOGLOBIN 11.3 g/dL (11.0-16.0); IMMATURE GRANULOCYTE # 0.2 K/uL (0.0-0.3); IMMATURE GRANULOCYTE % 0.9 %; LYMPHOCYTE # 0.5 K/uL (0.8-4.0); LYMPHOCYTE % 2.2 %; MCH 31.7 pg (27.0-34.0); MCHC 32.6 gm/dL (32.0-36.5); MCV 97.5 fl (83.0-98.0); MONOCYTE # 1.3 K/uL (0.0-1.0); MONOCYTE % 5.4 %; MPV 9.5 fl (9.4-12.4); NEUTROPHIL # (ANC) 21.1 K/uL (1.4-9.0); NEUTROPHIL % 91.2 %; NRBC % 0 /100WBC (0-0.00); PLATELET COUNT 342 K/uL (150-450); RBC 3.56 M/uL (3.50-5.50); RDW-CV 14.5 % (11.9-14.6)
[2016-06-03 06:46] LABS: WBC 23.2 K/uL (4.0-11.0)
[2016-06-03 07:01] LABS: ALK PHOS 73 IU/L (33-138); ALT 58 IU/L (12-78); ANION GAP 8.2 (10.0-19.0); AST 32 IU/L (10-40); BLOOD UREA NITROGEN 25 mg/dL (6-24); CALCIUM 7.9 mg/dL (8.5-10.5); CHLORIDE 106 mMol/L (96-110); CO2 31 mMol/L (22-32); CREATININE 0.6 mg/dL (0.6-1.3); ESTIMATED GFR (MDRD EQUATION) > 60; POTASSIUM 4.2 mMol/L (3.7-5.1); SODIUM 141 mMol/L (135-145); TOTAL BILIRUBIN 0.5 mg/dL (0.0-1.5)
[2016-06-03 07:02] LABS: ALBUMIN 1.8 gm/dL (3.5-5.0)
[2016-06-04 05:05] LABS: BASOPHIL % 0.2 %; EOSINOPHIL % 0.2 %; HEMATOCRIT 35.1 % (33.0-50.0); HEMOGLOBIN 11.4 g/dL (11.0-16.0); IMMATURE GRANULOCYTE # 0.2 K/uL (0.0-0.3); IMMATURE GRANULOCYTE % 1.2 %; LYMPHOCYTE # 0.5 K/uL (0.8-4.0); LYMPHOCYTE % 2.7 %; MCH 31.6 pg (27.0-34.0); MCHC 32.5 gm/dL (32.0-36.5); MCV 97.2 fl (83.0-98.0); MONOCYTE # 1.2 K/uL (0.0-1.0); MONOCYTE % 6.2 %; MPV 9.3 fl (9.4-12.4); NEUTROPHIL # (ANC) 17.6 K/uL (1.4-9.0); NEUTROPHIL % 89.5 %; NRBC % 0 /100WBC (0-0.00); PLATELET COUNT 353 K/uL (150-450); RBC 3.61 M/uL (3.50-5.50); RDW-CV 14.7 % (11.9-14.6)
[2016-06-04 05:07] LABS: WBC 19.6 K/uL (4.0-11.0)
[2016-06-04 05:27] LABS: ALK PHOS 77 IU/L (33-138); ALT 61 IU/L (12-78); ANION GAP 12.3 (10.0-19.0); AST 37 IU/L (10-40); BLOOD UREA NITROGEN 23 mg/dL (6-24); CALCIUM 7.8 mg/dL (8.5-10.5); CHLORIDE 104 mMol/L (96-110); CO2 28 mMol/L (22-32); CREATININE 0.7 mg/dL (0.6-1.3); ESTIMATED GFR (MDRD EQUATION) > 60; POTASSIUM 4.3 mMol/L (3.7-5.1); SODIUM 140 mMol/L (135-145); TOTAL BILIRUBIN 0.4 mg/dL (0.0-1.5); TOTAL PROTEIN 5.2 g/dL (6.0-8.4)
[2016-06-04 05:30] LABS: ALBUMIN 1.7 gm/dL (3.5-5.0)
[2016-06-05 06:07] LABS: BASOPHIL % 0.2 %; EOSINOPHIL # 0.1 K/uL (0.0-0.5); EOSINOPHIL % 0.4 %; HEMATOCRIT 36.2 % (33.0-50.0); HEMOGLOBIN 11.7 g/dL (11.0-16.0); IMMATURE GRANULOCYTE # 0.2 K/uL (0.0-0.3); IMMATURE GRANULOCYTE % 1.1 %; LYMPHOCYTE # 0.5 K/uL (0.8-4.0); LYMPHOCYTE % 2.4 %; MCH 31.8 pg (27.0-34.0); MCHC 32.3 gm/dL (32.0-36.5); MCV 98.4 fl (83.0-98.0); MONOCYTE # 1.5 K/uL (0.0-1.0); MONOCYTE % 6.9 %; MPV 9.2 fl (9.4-12.4); NEUTROPHIL # (ANC) 18.7 K/uL (1.4-9.0); NRBC % 0 /100WBC (0-0.00); PLATELET COUNT 432 K/uL (150-450); RBC 3.68 M/uL (3.50-5.50); RDW-CV 15.1 % (11.9-14.6)
[2016-06-05 06:25] LABS: ANION GAP 7.1 (10.0-19.0); BLOOD UREA NITROGEN 20 mg/dL (6-24); CALCIUM 8.4 mg/dL (8.5-10.5); CHLORIDE 105 mMol/L (96-110); CO2 31 mMol/L (22-32); CREATININE 0.7 mg/dL (0.6-1.3); ESTIMATED GFR (MDRD EQUATION) > 60; POTASSIUM 4.1 mMol/L (3.7-5.1); SODIUM 139 mMol/L (135-145)
== END 2016-06-07 10:45 | DRG 199 ==
LOC: GACC 14:42 → GPCU 16:56
PROVIDERS: Emergency Medicine; Family Medicine; Internal Medicine; Surgery; ADMIT Internal Medicine
PROC: 0W9B30Z Drainage of Left Pleural Cavity with Drainage Device, Percutaneous Approach (ICD-10-PCS; principal; 2016-05-21)
PROC: 3E0F7GC Introduction of Other Therapeutic Substance into Respiratory Tract, Via Natural or Artificial Opening (ICD-10-PCS; 2016-05-22)
PROC: F00ZJWZ Instrumental Swallowing and Oral Function Assessment using Swallowing Equipment (ICD-10-PCS; 2016-05-25)
DX: J93.9 Pneumothorax, unspecified (principal); E43 Unspecified severe protein-calorie malnutrition; J69.0 Pneumonitis due to inhalation of food and vomit; J96.01 Acute respiratory failure with hypoxia; G93.41 Metabolic encephalopathy; J90 Pleural effusion, not elsewhere classified; J94.2 Hemothorax; K92.0 Hematemesis; S22.42XA Multiple fractures of ribs, left side, initial encounter for closed fracture; T79.7XXA Traumatic subcutaneous emphysema, initial encounter; Z68.1 Body mass index [BMI] 19.9 or less, adult; E11.40 Type 2 diabetes mellitus with diabetic neuropathy, unspecified; E16.2 Hypoglycemia, unspecified; E78.5 Hyperlipidemia, unspecified; I25.10 Atherosclerotic heart disease of native coronary artery without angina pectoris; I35.0 Nonrheumatic aortic (valve) stenosis; I73.9 Peripheral vascular disease, unspecified; I95.1 Orthostatic hypotension; K31.84 Gastroparesis; K59.00 Constipation, unspecified; M54.9 Dorsalgia, unspecified; M81.0 Age-related osteoporosis without current pathological fracture; I13.10 Hypertensive heart and chronic kidney disease without heart failure, with stage 1 through stage 4 chronic kidney disease, or unspecified chronic kidney disease; E11.22 Type 2 diabetes mellitus with diabetic chronic kidney disease; N18.3 Chronic kidney disease, stage 3 (moderate); R29.6 Repeated falls; Z66 Do not resuscitate; Z87.891 Personal history of nicotine dependence; Z51.5 Encounter for palliative care; F03.90 Unspecified dementia, unspecified severity, without behavioral disturbance, psychotic disturbance, mood disturbance, and anxiety; Z95.5 Presence of coronary angioplasty implant and graft
CPT/HCPCS: A9537; C9113; J0131; J1170; J1650; J2060; J2270; J2405; J2543; J2765; J2920; J7040; J7050; J7512; P9047; Q9967